=== PATIENT | female | born 1975 | race Two or more races ===

== ENCOUNTER 2023-05-24 14:27 | Inpatient (IN) | payer OTHER ==
[~2023-05-24] VITALS: Ht 165.1 cm; Wt 78.0 kg
[2023-05-24] VITALS (8 sets, daily range): BP systolic 115–122; BP diastolic 75–85; TEMP 97.6–98; O2SAT 97–98
[2023-05-24] MEDS ORDERED: LISINOPRIL (20MG) 20 MG TABLET ONE (14:48)
[2023-05-24] MEDS ORDERED: IV LR 1000 ML 1,000 ML BAG IV ONE (15:00)
[2023-05-24] MEDS ORDERED: LISINOPRIL (20MG) 20 MG TABLET PO SCH (15:00)
[2023-05-24 15:07] LABS: BASOPHILS # (AUTO) 0.1 K/uL (0.0-0.2); BASOPHILS % (AUTO) 1.1 % (0.0-2.0); EOSINOPHILS # (AUTO) 0.2 K/uL (0.0-0.7); EOSINOPHILS % (AUTO) 3.2 % (0.0-6.0); HEMATOCRIT 40 % (33-45); HEMOGLOBIN 13.4 g/dL (11.5-14.8); LYMPHOCYTES # (AUTO) 2.2 K/uL (0.8-4.8); LYMPHOCYTES % (AUTO) 32.3 % (20.0-44.0); MEAN CORPUSCULAR HEMOGLOBIN 31 PG (26.0-33.0); MEAN CORPUSCULAR HGB CONC 33 g/dl (31.0-36.0); MEAN CORPUSCULAR VOLUME 92 fL (82-100); MONOCYTES # (AUTO) 0.5 K/uL (0.1-1.30); MONOCYTES % (AUTO) 6.7 % (2.0-12.0); NEUTROPHILS # (AUTO) 3.9 K/uL (1.8-8.9); NEUTROPHILS % (AUTO) 56.7 % (43.0-81.0); PLATELET COUNT (AUTO) 281 K/uL (150-450); RED BLOOD CELL COUNT(AUTO) 4.38 MIL/uL (4.0-5.2); RED CELL DISTRIBUTION WIDTH 13.3 % (11.5-15.0); WHITE BLOOD COUNT (AUTO) 6.9 K/uL (4.3-11.0)
[2023-05-24 15:14] LABS: CALCIUM, SERUM 9.3 mg/dL (8.5-10.1); POTASSIUM 3.8 mmol/L (3.5-5.1)
[2023-05-24] MEDS ORDERED: LISI20TA30 PO (15:17)
[2023-05-24 15:20] LABS: BILIRUBIN,TOTAL 0.9 mg/dL (0.2-1.0); TOTAL PROTEIN, SERUM 7.6 g/dL (6.4-8.2)
[2023-05-24 15:24] LABS: INR 0.97 (0.91-1.10); PARTIAL THROMBOPLASTIN TIME 27.1 SEC (24.3-34.3); PROTHROMBIN TIME 10.3 SECS (9.2-11.1)
[2023-05-24] MEDS ORDERED: BUPIVACAINE 0.5 % PF 150 MG/30 ML VIAL ONE (15:52)
[2023-05-24] MEDS ORDERED: ANESTHESIA TRAY IN PYXIS 1 EA TRAY MC ONE ×3 (15:52→18:46)
[2023-05-24] MEDS ORDERED: LIDOCAINE 1% INJ 50 ML MDV IJ ONE (15:52)
[2023-05-24 16:02] LABS: PREGNANCY TEST URINE QUAL NEGATIVE (NEGATIVE)
[2023-05-24] MEDS ORDERED: DOCU100C36 PO (16:27)
[2023-05-24] MEDS ORDERED: FAMOTIDINE/PF INJ 20 MG/2 ML VIAL IV ONE (17:17)
[2023-05-24] MEDS ORDERED: FENTANYL PF 100MCG/2ML AMPUL ONE (17:17)
[2023-05-24] MEDS ORDERED: MIDAZOLAM HCL 2 MG/2ML VIAL ONE (17:17)
[2023-05-24] MEDS ORDERED: ROCURONIUM BROMIDE 50 MG/5 ML ONE (17:18)
[2023-05-24] MEDS ORDERED: CLINDAMYCIN 900 MG/6 ML VIAL ONE (18:01)
[2023-05-24] MEDS ORDERED: METRONIDAZOLE 500MG/ NS 100ML 0 ML IV ONE (18:01)
[2023-05-24] MEDS ORDERED: IV D5 LR 1,000 ML IV PRN (19:00)
[2023-05-24] MEDS ORDERED: ACETAMINOPHEN W/ CODEINE#3 1 EA TABLET PO PRN (19:00)
[2023-05-24] MEDS ORDERED: METRONIDAZOLE 0.75% GEL 70 GM TUBE VG SCH (22:00)
[2023-05-24] MEDS ORDERED: INSULIN GLARGINE, 100 UNIT/ML CARTRIDGE SQ ONE (22:28)
[2023-05-24] MEDS: ANCEF 1 GM/50 ML D5W IV SCH ×2 (22:43)
[2023-05-25] MEDS: ANCEF 1 GM/50 ML D5W IV SCH ×4 (06:14→15:25)
[2023-05-25 08:00] VITALS: BP 131/83; TEMP 97.8; O2SAT 98
[2023-05-25] MEDS ORDERED: LISINOPRIL (20MG) 20 MG TABLET PO SCH (09:00)
[2023-05-25 10:25] VITALS: BP 131/83
== END 2023-05-25 18:00 | disposition home or self-care (01) | DRG 909 ==
LOC: ER 14:27 → TELE 17:38 → MED 20:48
PROVIDERS: ADMIT Obstetrics & Gynecology; ATTEND Obstetrics & Gynecology
PROC: 0KQM0ZZ Repair Perineum Muscle, Open Approach (ICD-10-PCS; principal; 2023-05-24)
DX: N99.820 Postprocedural hemorrhage of a genitourinary system organ or structure following a genitourinary system procedure (principal); S31.41XA Laceration without foreign body of vagina and vulva, initial encounter; I10 Essential (primary) hypertension; X58.XXXA Exposure to other specified factors, initial encounter; Y93.41 Activity, dancing; Y92.89 Other specified places as the place of occurrence of the external cause; Y83.8 Other surgical procedures as the cause of abnormal reaction of the patient, or of later complication, without mention of misadventure at the time of the procedure; Y76.8 Miscellaneous obstetric and gynecological devices associated with adverse incidents, not elsewhere classified
CPT/HCPCS: 36415; 71045-TC; 80053-TC; 84702-TC; 84703-TC; 85025-TC; 85730-TC; 86850-TC; A4223; A6403; G0378; J0690; J1815; J1885; J2250; J2405; J2704; J2765; J3010; J3490; J7030; J7060; J7120